=== PATIENT | female | born 1950 | race Caucasian/White ===

== ENCOUNTER 2017-10-08 09:23 | Inpatient (IN) ==
[2017-10-08] MEDS ORDERED: ONDANSETRON 4 MG/2 ML VIAL IV STA (09:57)
[2017-10-08] MEDS ORDERED: SODIUM CHLORIDE 0.9% 500 ML IV STA (09:57)
[2017-10-08] MEDS ORDERED: PANTOPRAZOLE 40 MG VIAL IV STA (09:57)
[2017-10-08 10:22] LABS: Basophils # 0.1 10*3/uL (0.0-0.2); Basophils % 0.3 % (0.0-0.8); Eosinophils # 0.1 10*3/uL (0.0-0.87); Eosinophils % 0.7 % (0.00-10.9); Hematocrit 45.7 VOL% (35.7-47.0); Hemoglobin 15.3 GM/DL (12.0-16.0); Immature Granulocytes % 0.4 %; Immature Granulocytes Absolute 0.07 #; Lymphocytes # 2.9 10*3/uL (1.4-4.0); Lymphocytes % 14.3 % (21.3-54.2); Mean Corpuscular HGB Conc 33.5 GM/DL (32-36); Mean Corpuscular Hemoglobin 29 PG (27-34); Mean Corpuscular Volume 86.2 FL (87-102); Mean Platelet Volume 10.8 FL (9.6-12.0); Monocytes # 1.1 10*3/uL (0.11-0.8); Monocytes % 5.4 % (1.7-12.7); Neutrophils # 15.8 10*3/uL (1.4-7.4); Neutrophils % 78.9 % (38.7-73.9); Platelet Count 291 T/CUMM (130-400); Red Cell Distribution Width 12.7 % (9.3-17.3)
[2017-10-08 10:30] LABS: INR 1.1; PT Patient Result 11.2 SECS
[2017-10-08 10:43] LABS: Albumin 3.7 G/DL (3.4-5.0); Bilirubin,Total 1.3 MG/DL (0.2-1.0); Calcium 9.5 MG/DL (8.5-10.1); Osmolality,Calculated 275.7 MOS/KG (273-304); Potassium 3.9 MMOL/L (3.5-5.1); Total Protein 7.8 G/DL (6.4-8.3)
[2017-10-08] MEDS ORDERED: LEVOFLOXACIN INJ 500 MG in PREMIX 1 EACH IV STA (10:44)
[2017-10-08] MEDS ORDERED: metroNIDAZOLE INJ 500 MG in PREMIX 1 EACH IV STA (10:44)
[2017-10-08] MEDS ORDERED: PROMETHAZINE 25 MG/1 ML VIAL IM PRN (11:24)
[2017-10-08] MEDS ORDERED: ONDANSETRON 4 MG/2 ML VIAL IV PRN (11:24)
[2017-10-08] MEDS ORDERED: MAGNESIUM SULF RIDER 4 GM in PREMIX 1 EACH IV PRN (11:24)
[2017-10-08] MEDS ORDERED: MAGNESIUM SULF RIDER 2 GM in PREMIX 1 EACH IV PRN (11:24)
[2017-10-08] MEDS ORDERED: MORPHINE 4 MG/1 ML VIAL IV PRN (11:24)
[2017-10-08] MEDS: oxyCODONE/ACETAMINOPHEN 5-325 MG TABLET PO PRN (13:45)
[2017-10-08] MEDS: SODIUM CHLORIDE 0.9% 1,000 ML IV SCH (13:46)
[2017-10-08] MEDS ORDERED: MEROPENEM 1,000 MG in SODIUM CHLORIDE 0.9% 100 ML IV SCH (14:00)
[2017-10-08 15:30] LABS: Apearance,Urine CLEAR (Clear); Bilirubin,Urine Negative (Negative); Blood, Urine Moderate mg/dL (Negative); Glucose,Urine (UA) Negative (Negative); Ketones,Urine Negative (Negative); Nitrite,Urine Negative (Negative); Protein,Urine Negative; RBC,Urine <1 /HPF (0-4); Squamous Epithelial Cell,Urine Occasional /HPF (0-10); Urine Color Yellow (Yellow); Urine Specific Gravity 1.054 (1.001-1.035); Urine Urobilinogen < 2.0 EU/DL (0.2-1.0); WBC,Urine 6 /HPF (0-6)
[2017-10-08] MEDS: metroNIDAZOLE INJ 500 MG in PREMIX 1 EACH IV SCH (18:26)
[2017-10-08] MEDS: GABAPENTIN 300 MG CAPSULE PO SCH (21:12)
[2017-10-08] MEDS: CITALOPRAM 40 MG TABLET PO SCH (21:12)
[2017-10-08] MEDS: PANTOPRAZOLE 40 MG TABLET PO SCH (21:12)
[2017-10-08] MEDS: CARBIDOPA/LEVODOPA 25-250 MG TABLET PO SCH (21:13)
[2017-10-09] MEDS: metroNIDAZOLE INJ 500 MG in PREMIX 1 EACH IV SCH ×4 (00:09→20:37)
[2017-10-09] MEDS: SODIUM CHLORIDE 0.9% 1,000 ML IV SCH ×2 (00:10→15:52)
[2017-10-09] MEDS: oxyCODONE/ACETAMINOPHEN 5-325 MG TABLET PO PRN ×2 (07:36→21:06)
[2017-10-09 08:17] LABS: Albumin 3.3 G/DL (3.4-5.0); Bilirubin,Total 0.8 MG/DL (0.2-1.0); Osmolality,Calculated 278.3 MOS/KG (273-304); Potassium 4.4 MMOL/L (3.5-5.1); Total Protein 7.1 G/DL (6.4-8.3)
[2017-10-09] MEDS ORDERED: PANTOPRAZOLE 40 MG VIAL IV SCH (09:00)
[2017-10-09] MEDS ORDERED: VALSARTAN 160 MG TABLET PO SCH (09:00)
[2017-10-09] MEDS: PANTOPRAZOLE 40 MG TABLET PO SCH ×2 (09:45→21:05)
[2017-10-09] MEDS: VALSARTAN 160 MG TABLET PO SCH (09:45)
[2017-10-09] MEDS: CHOLECALCIFEROL 5,000 UNIT TABLET PO SCH (09:45)
[2017-10-09] MEDS: MAGNESIUM OXIDE 400 MG TABLET PO SCH (09:45)
[2017-10-09] MEDS: CALCIUM (CARBONATE)/VITAMIN D 600 MG-400 UNIT TABLET PO SCH (09:45)
[2017-10-09] MEDS: POTASSIUM CHLORIDE 10 MEQ TABLET PO SCH (09:45)
[2017-10-09] MEDS ORDERED: LEVOFLOXACIN INJ 500 MG in PREMIX 1 EACH IV SCH (12:00)
[2017-10-09] MEDS ORDERED: GABAPENTIN 300 MG CAPSULE PO SCH (12:00)
[2017-10-09] MEDS: CITALOPRAM 40 MG TABLET PO SCH (21:05)
[2017-10-09] MEDS: CARBIDOPA/LEVODOPA 25-250 MG TABLET PO SCH (21:05)
[2017-10-09] MEDS: GABAPENTIN 300 MG CAPSULE PO SCH (21:05)
[2017-10-10] MEDS: metroNIDAZOLE INJ 500 MG in PREMIX 1 EACH IV SCH ×2 (04:15→09:03)
[2017-10-10 05:23] LABS: Basophils # 0.1 10*3/uL (0.0-0.2); Basophils % 0.6 % (0.0-0.8); Eosinophils # 0.3 10*3/uL (0.0-0.87); Eosinophils % 2.6 % (0.00-10.9); Hematocrit 38.4 VOL% (35.7-47.0); Hemoglobin 12.8 GM/DL (12.0-16.0); Immature Granulocytes % 0.6 %; Immature Granulocytes Absolute 0.07 #; Lymphocytes # 3.4 10*3/uL (1.4-4.0); Lymphocytes % 26.4 % (21.3-54.2); Mean Corpuscular HGB Conc 33.3 GM/DL (32-36); Mean Corpuscular Hemoglobin 29 PG (27-34); Mean Corpuscular Volume 87.9 FL (87-102); Monocytes # 0.5 10*3/uL (0.11-0.8); Monocytes % 4.2 % (1.7-12.7); Neutrophils # 8.4 10*3/uL (1.4-7.4); Neutrophils % 65.6 % (38.7-73.9); Platelet Count 227 T/CUMM (130-400); Red Blood Count 4.37 MC/CUMM (3.8-5.5); Red Cell Distribution Width 12.8 % (9.3-17.3); White Blood Count 12.7 T/CUMM (4-12)
[2017-10-10 05:58] LABS: Albumin 3.1 G/DL (3.4-5.0); Bilirubin,Total 0.6 MG/DL (0.2-1.0); Calcium 8.7 MG/DL (8.5-10.1); Osmolality,Calculated 279.1 MOS/KG (273-304); Potassium 3.6 MMOL/L (3.5-5.1); Total Protein 6.4 G/DL (6.4-8.3)
[2017-10-10] MEDS: MAGNESIUM OXIDE 400 MG TABLET PO SCH (09:02)
[2017-10-10] MEDS: PANTOPRAZOLE 40 MG TABLET PO SCH (09:02)
[2017-10-10] MEDS: CALCIUM (CARBONATE)/VITAMIN D 600 MG-400 UNIT TABLET PO SCH (09:02)
[2017-10-10] MEDS: POTASSIUM CHLORIDE 10 MEQ TABLET PO SCH (09:03)
[2017-10-10] MEDS: VALSARTAN 160 MG TABLET PO SCH (09:03)
[2017-10-10] MEDS: CHOLECALCIFEROL 5,000 UNIT TABLET PO SCH (09:03)
[2017-10-10 09:13] VITALS: BP 135/71
== END 2017-10-10 11:05 | disposition home or self-care (01) | DRG 392 ==
LOC: N.ED 09:23 → N.EDINP 11:22 → SUATTDRO 11:22 → N.2W 12:17 → N.2E 14:20
PROVIDERS: ADMIT Internal Medicine; ATTEND Internal Medicine